=== PATIENT | female | born 1945 | race Caucasian/White ===

== ENCOUNTER 2017-01-25 07:22 | Emergency (ER) | payer MEDICARE, BC ==
[~2017-01-25] VITALS: Ht 160 cm; Wt 70.6 kg
[2017-01-25 08:29] LABS: HEMATOCRIT 41.1 % (34.6-47.8); WHITE BLOOD COUNT 11.7 x10^3/uL (3.4-10)
[2017-01-25] MEDS ORDERED: SODIUM CHLORIDE 0.9% 1,000ML IVBOLUS ONE (08:30)
[2017-01-25] MEDS ORDERED: SODIUM CHLORIDE FLUSH 10ML SYR IVF ONE (08:30)
[2017-01-25 08:36] LABS: BLOOD UREA NITROGEN 27 mg/dL (7-18)
[2017-01-25 08:42] LABS: ASPARTATE AMINO TRANSFERASE 25 U/L (15-37)
[2017-01-25 08:45] LABS: IS PT STATUS REG ER OR PRE ER? YES
[2017-01-25] MEDS ORDERED: LISI-170 PO (10:32)
[2017-01-25] MEDS ORDERED: GLUC1500 PO (10:32)
[2017-01-25] MEDS ORDERED: ASCO10004 PO (10:32)
[2017-01-25] MEDS ORDERED: DICL75TA2 PO (10:32)
[2017-01-25] MEDS ORDERED: OMEG1CAP34 PO (10:32)
[2017-01-25] MEDS ORDERED: MONT10TA9 PO (10:32)
[2017-01-25] MEDS ORDERED: AMLO5TAB2 PO (10:32)
[2017-01-25] MEDS ORDERED: UBID100C41 PO (10:32)
[2017-01-25] MEDS ORDERED: LOVA40TA2 PO (10:32)
[2017-01-25] MEDS ORDERED: SERT25TA PO (10:32)
[2017-01-25] MEDS ORDERED: LORA10TA62 PO (10:32)
[2017-01-25] MEDS ORDERED: MULT-224 PO (10:32)
[2017-01-25] MEDS ORDERED: EZET10TA18 PO (10:32)
[2017-01-25] MEDS ORDERED: POTA8CAP PO (10:32)
[2017-01-25] MEDS ORDERED: METF500T4 PO (10:32)
[2017-01-25] MEDS ORDERED: CALC-680 PO (10:32)
[2017-01-25] MEDS ORDERED: LEVO125T PO (10:32)
[2017-01-25 11:39] VITALS: BP 157/77
== END 2017-01-25 11:41 | disposition home or self-care (01) ==
LOC: ED 09:17
DX: R41.82 Altered mental status, unspecified (principal); R44.1 Visual hallucinations; K21.9 Gastro-esophageal reflux disease without esophagitis
CPT/HCPCS: 36415; 80053; 81001; 84484; 85025; 85610; 93005; 96360; 96361; 99285; J7030